=== PATIENT | male | born 1970 | race Hispanic/Latino ===

== ENCOUNTER → 2024-10-10 | Outpatient (CLI) | payer OTHER ==
[2024-10-10 15:05] LABS: CREATININE 0.9 mg/dL (0.5-1.3)
== END | disposition home or self-care (01) ==
LOC: LAB 14:31
PROVIDERS: ATTEND Otolaryngology Plastic Surgery within the Head & Neck
DX: H90.6 Mixed conductive and sensorineural hearing loss, bilateral (principal)
CPT/HCPCS: 36415; 82565; 84520

== ENCOUNTER → 2024-10-22 | Outpatient (CLI) | payer OTHER ==
[~2024-10-22] MED LIST: GADOTERATE MEGLUMINE 10 MMOL/20 ML VIAL IV ONE
--- NOTE | 2024-10-22 14:27 | HMCIMG ---
MR BRAIN AND IACS WWO CON REASON: SENSORINEURAL HEARING LOSS COMPARISON: There are no prior MRI scans available for comparison. TECHNIQUE: Routine cerebral imaging protocol was performed. Images are also obtained pre and post gadolinium contrast infusion. Additional high-resolution images are obtained in the temporal bones with attention to the internal auditory canals. CONTRAST: 20 cc Clariscan IV. FINDINGS: There is normal appearing brain parenchyma. There are no focal mass lesions. There are no areas of abnormal contrast enhancement or abnormal signal intensity. Additional high resolution temporal bone images show normal-appearing internal auditory canals. There are no focal masses. There are no areas of abnormal contrast enhancement. Mastoid air cells appear normally aerated without fluid. Ventricles and sulci appear normal. Posterior fossa and brainstem structures appear unremarkable. There is no evidence of intracranial hemorrhage. Diffusion-weighted images are negative for an acute ischemic process. There are no abnormal fluid collections. Extracranial soft tissues appear normal as well. IMPRESSION: 1. Normal pre and postcontrast MRI of the brain. 2. Normal pre and postcontrast high-resolution images of the temporal bones and internal auditory canals.
== END | disposition home or self-care (01) ==
LOC: RAH 12:50
PROVIDERS: ATTEND Otolaryngology Plastic Surgery within the Head & Neck
DX: H90.6 Mixed conductive and sensorineural hearing loss, bilateral (principal); H90.5 Unspecified sensorineural hearing loss
CPT/HCPCS: 70553; A9575